=== PATIENT | male | born 1945 | race Caucasian/White ===

== ENCOUNTER 2017-12-02 23:52 | Emergency (ER) | payer MEDICARE ==
[~2017-12-02] VITALS: Ht 172.7 cm; Wt 95.3 kg
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
[2017-12-03] MEDS ORDERED: TETANUS,DIPTH,PERTUSS P/F (BOOSTRIX) 0.5 ML VIAL IM ONE (00:15)
[2017-12-03] MEDS ORDERED: ceFAZolin INJECTION 1,000 MG in NS (IVPB) 50 ML IV ONE (00:15)
[2017-12-03 00:56] LABS: BILIRUBIN,URINE NEGATIVE (NEGATIVE); CLARITY,URINE CLEAR; COLOR,URINE YELLOW; GLUCOSE, URINE (UA) NEGATIVE (NEGATIVE); KETONES,URINE NEGATIVE (NEGATIVE); LEUKOCYTE ESTERASE ,URINE 1+ (NEGATIVE); NITRITE,URINE NEGATIVE (NEGATIVE); PH,URINE 5 (5-9); PROTEIN,URINE 2+ (NEGATIVE); UROBILINOGEN,URINE NORMAL (NORMAL)
[2017-12-03 01:06] LABS: BACTERIA,URINE FEW /HPF; SQUAMOUS EPITHELIAL CELL,UR RARE /HPF
[2017-12-03 01:07] LABS: GRANULAR CASTS,URINE RARE /LPF; WHITE BLOOD CELL CASTS, URINE 0-2 /LPF
[2017-12-03 01:26] VITALS: BP 115/68
--- NOTE | 2017-12-03 06:40 | Diagnostic Imaging Report ---
INDICATION: Left ankle trauma, pain. COMPARISON: None. FINDINGS: 2 views of left ankle demonstrate displaced oblique fracture of the distal fibula. There is severe dislocation of ankle mortise with lateral displacement of the talus. Questionable medial malleolus fracture is seen. IMPRESSION: Complex left ankle fracture. Dictated by: Dictated on workstation # [id number]
== END 2017-12-03 01:26 | disposition short-term general hospital (02) ==
LOC: ER 23:55
DX: S82.892A Other fracture of left lower leg, initial encounter for closed fracture (principal); S82.832A Other fracture of upper and lower end of left fibula, initial encounter for closed fracture; R40.2142 Coma scale, eyes open, spontaneous, at arrival to emergency department; R40.2252 Coma scale, best verbal response, oriented, at arrival to emergency department; R40.2362 Coma scale, best motor response, obeys commands, at arrival to emergency department; Z23 Encounter for immunization; Z88.0 Allergy status to penicillin; V17.4XXA Pedal cycle driver injured in collision with fixed or stationary object in traffic accident, initial encounter
CPT/HCPCS: 73600; 81000; 87088; 90715